=== PATIENT | male | born 1935 | race Caucasian/White ===

== ENCOUNTER 2019-01-08 19:20 | Inpatient (IN) ==
[2019-01-08 19:47] LABS: BASO# 0.01 X1000 (0.0-0.2); BASO% 0.1 % (0.0-0.8); EOS# 0.01 X1000 (0.0-0.7); EOS% 0.1 % (0.0-10.0); HEMATOCRIT 41.9 % (42.0-52.0); HEMOGLOBIN 14.2 g/dL (14.0-18.0); IMM GRAN# 0.02 X1000 (0.0-0.04); IMM GRAN% 0.2 % (0.0-0.5); LYMPH# 0.69 X1000 (1.2-3.4); LYMPH% 7.1 % (20.5-51.1); MCH 31.3 PG (27-31); MCHC 33.9 g/dL (33-37); MCV 92.3 FL (81-99); MONO# 1.16 X1000 (0.11-0.59); MPV 10.6 FL (7.4-10.4); NEUT# 7.79 X1000 (1.4-6.5); NEUT% 80.5 % (42.2-75.2); PLT 102 X1000 (130-400); RBC 4.54 XMIL (4.7-6.1); RDW 12.8 % (11.5-14.5); WBC 9.68 X1000 (4.8-10.8)
[2019-01-08 19:57] LABS: INR 1.03
--- NOTE | 2019-01-08 19:58 | PROVIDER DOCUMENTATION ---
This chart was entered by Sid Zabala Scribe, acting as scribe for Tad Joy CRNP. HPI-General Adult - General Chief Complaint: Shoulder Pain Stated Complaint: RIGHT NECK & SHOULDER PAIN Time Seen by Provider: 01/08/19 19:10 Source: patient Allergies/Adverse Reactions: Patient Allergies Allergy/AdvReac Type Severity Reaction Status Date / Time No Known Allergies Allergy Verified 01/08/19 19:08 Home Medications: Home Medication List Medication Instructions Recorded Confirmed Last Taken Type Famotidine [Pepcid] 20 mg PO DAILY 09/15/13 04/14/18 01/20/16 History Levothyroxine [Synthroid] 100 microgm PO HS 09/15/13 04/14/18 01/21/16 History Losartan [Cozaar] 50 mg PO HS 09/15/13 04/14/18 01/21/16 History Psyllium Husk/Aspartame [Metamucil 3.4 gm PO DAILY 09/15/13 01/21/16 01/21/16 History Fiber Singles Packet] Tamsulosin [Flomax] 0.4 mg PO QHS PRN 09/15/13 04/14/18 01/20/16 History Clopidogrel Bisulfate [Plavix] 75 mg PO DAILY 02/25/15 04/14/18 02/25/15 History ROSUVAstatin [Crestor] 10 mg PO QHS 02/25/15 04/14/18 01/21/16 History Aspirin [Adult Low Dose Aspirin EC] 81 mg PO DAILY #1 tablet. 02/27/15 Unknown Rx Nitroglycerin 0.4 mg SL PRN PRN #20 tab.subl 02/27/15 04/14/18 Unknown Rx Escitalopram Oxalate [Lexapro] 10 mg PO HS 04/14/18 04/14/18 Unknown History Finasteride [Proscar] 5 mg PO HS 04/14/18 04/14/18 Unknown History Losartan [Cozaar] 25 mg PO DAILY 04/14/18 04/14/18 Unknown History Tramadol [Ultram] 50 mg PO Q8H PRN #20 tab 01/06/19 Unknown Rx - History of Present Illness -Gen Adult Nature of Presenting Problems: 83 y/o M presents to the ED via EMS c/o neck and right shoulder pain. Onset a few days ago. Patient was seen at [facility] x2 days ago, had a ct and was told he had arthritis. Patient denies shortness of breath even though on arrival he has a low O2. Patient denies chest pain, nausea, vomiting and all other symptoms. Location of Pain/Injury: reports: neck, upper extremity Pain Radiation: reports: no radiation Quality of Pain: reports: aching Severity: reports: mild Onset/Duration: reports: 2 days ago Timing: reports: still present Context/Activities at Onset: reports: none Modifying Factors: improves with: nothing Associated Symptoms: reports: denies symptoms Similar Symptoms Previously?: Yes Recently seen or treated by another doctor?: Yes Review of Systems - Adult - REVIEW OF SYSTEMS - ADULT Constitutional: denies: chills, fever Eyes: reports: no symptoms reported Ears, Nose, Mouth & Throat: reports: no symptoms reported Cardiovascular: denies: chest pain, palpitations Respiratory: denies: shortness of breath, wheezing Gastrointestinal: denies: diarrhea, nausea, vomiting Genitourinary: reports: no symptoms reported Musculoskeletal: reports: neck pain, other (shoulder pain) Integumentary: reports: no symptoms reported Neurological: denies: dizziness/vertigo, headache/migraines Psychiatric: reports: no symptoms reported Endocrine: reports: no symptoms reported Hematologic/Lymphatic: reports: no symptoms reported Allergic/Immunologic: reports: no symptoms reported All Other Systems: Reviewed and Negative Past History - Adult - PAST MEDICAL HISTORY-ADULT Review of Records: reports: Nursing Assessment Review, Medications Reviewed Major Childhood Illnesses: reports: denies history Cardiovascular: reports: cardiac disease, CAD, HTN Respiratory: reports: denies history Gastrointestinal: reports: denies history Obstetrical/Gynecological: reports: denies history Genitourinary: reports: other (1 kidney, hx of bladder cancer) Musculoskeletal: reports: denies history Neurological: reports: denies history Psychiatric: reports: denies history Endocrine/Immune: reports: denies history Other Conditions: reports: denies history - PRIOR SURGERIES/PROCEDURES Surgical/Procedure History: reports: CABG - IMMUNIZATION STATUS Childhood Immunizations: See Nurse Assessment Flu Vaccine: See Nurse Assessment - FAMILY HISTORY Family History: reviewed, not pertinent Physical Exam-General - PHYSICAL EXAM-ADULT Initial Vital Signs Reviewed: Yes - CONSTITUTIONAL General Appearance: alert, no apparent distress - NECK Neck: non-tender, full range of motion, supple, normal inspection - RESPIRATORY Respiratory: lungs clear, normal breath sounds, no respiratory distress, no accessory muscle use - CARDIOVASCULAR Cardiovascular: normal peripheral pulses, regular rate, rhythm - GASTROINTESTINAL (ABDOMEN) Abdominal Exam: normal bowel sounds, non tender, soft - MUSCULOSKELETAL Back Exam: normal inspection, no vertebral tenderness Extremity: normal range of motion, normal capillary refill - SKIN Integumentary: normal color, warm/dry - PSYCHIATRIC Psych/Mental Status: normal mood/affect, oriented x 3 Progress - PLAN OF CARE/RESULTS Progress/Plan/Lab Results: Vital Signs - 8 hr 01/08/19 19:03 Temperature 98.1 F Pulse Rate 72 Respiratory Rate 20 Blood Pressure 154/91 O2 Sat by Pulse Oximetry 93 L Orders Category Date Time Status Saline Loc NOW Care 01/08/19 19:11 Active CHEST-PORTABLE [RAD] Stat Exams 01/08/19 19:12 Ordered CBC WITH ELECTRONIC DIFF [HEME] Stat Lab 01/08/19 19:11 Uncollected CK PROFILE [SP CHEM] Stat Lab 01/08/19 19:11 Uncollected COMPREHENSIVE METABOLIC PANEL [CHEM] Stat Lab 01/08/19 19:11 Uncollected D-DIMER [COAG] Stat Lab 01/08/19 19:12 Uncollected PROTIME WITH INR [COAG] Stat Lab 01/08/19 19:12 Uncollected PTT [COAG] Stat Lab 01/08/19 19:12 Uncollected TROPONIN T Stat Lab 01/08/19 19:12 Uncollected EKG [EKG] Stat Ther 01/08/19 19:11 Ordered Laboratory Tests 01/08/19 01/08/19 01/08/19 19:34 19:34 19:34 WBC 9.68 RBC 4.54 L Hgb 14.2 Hct 41.9 L MCV 92.3 MCH 31.3 H MCHC 33.9 RDW Std Deviation 12.8 Plt Count 102 L MPV 10.6 H Immature Gran % (Auto) 0.2 Neut % (Auto) 80.5 H Lymph % (Auto) 7.1 L [place] % (Auto) 12.0 H Eos % (Auto) 0.1 Baso % (Auto) 0.1 Immature Gran # (Auto) 0.02 Neut # (Auto) 7.79 H Lymph # (Auto) 0.69 L [place] # (Auto) 1.16 H Eos # (Auto) 0.01 Baso # (Auto) 0.01 PT 14.0 INR 1.03 PTT (Actin FS) 32.0 D-Dimer, Quantitative 1.50 H Sodium 129 L Potassium 4.2 Chloride 95 L Carbon Dioxide 21 L Anion Gap 12 BUN 27 H Creatinine 1.8 H Estimated GFR/1.73 m2 36 BUN/Creatinine Ratio 15 Glucose 163 H Calculated Osmolality 268 Calcium 7.6 L Total Bilirubin 2.40 H AST 50 H ALT 53 H Alkaline Phosphatase 114 Creatine Kinase 60 Troponin T Total Protein 5.8 L Albumin 3.6 Globulin 2.0 Albumin/Globulin Ratio 2.0 01/08/19 19:34 WBC RBC Hgb Hct MCV MCH MCHC RDW Std Deviation Plt Count MPV Immature Gran % (Auto) Neut % (Auto) Lymph % (Auto) [place] % (Auto) Eos % (Auto) Baso % (Auto) Immature Gran # (Auto) Neut # (Auto) Lymph # (Auto) [place] # (Auto) Eos # (Auto) Baso # (Auto) PT INR PTT (Actin FS) D-Dimer, Quantitative Sodium Potassium Chloride Carbon Dioxide Anion Gap BUN Creatinine Estimated GFR/1.73 m2 BUN/Creatinine Ratio Glucose Calculated Osmolality Calcium Total Bilirubin AST ALT Alkaline Phosphatase Creatine Kinase Troponin T < 0.010 Total Protein Albumin Globulin Albumin/Globulin Ratio Discussed results and plan of care with patient. Patient agrees with plan and v erbalizes understanding. Result Diagrams: 01/08/19 19:34 01/08/19 19:34 - XRAY 1 XRAY Study: Chest [facility] - [address] [facility] [address], [place] [address] [facility] [address] [place] [address] Department of Imaging Patient: NASRIN LOUIS ROYADM Date: MR#: [id number] : 6ADM [id number] Age/Sex: 83/MRoom/Bed: Loc: P.ED Ordering Physician: Tad Joy Family Physician: None,PCP Reason for Procedure: SOB ___ Signed EXAM: CHEST-PORTABLE INDICATION: SOB TECHNIQUE: One view COMPARISON: 02/15/2018 FINDINGS: Inspiration is suboptimal. There is subsegmental atelectasis at both lung bases. There is a stable right paratracheal density. On a recent CT it appears to simply represent a lipoma at the base of the neck. No new consolidations are appreciated. There is stable cardiomegaly and median sternotomy wires. Central vasculature is unremarkable. There is no discrete pleural fluid collection or pneumothorax. IMPRESSION: Low lung volumes and subsegmental atelectasis as described. Stable chest, otherw ise. Electronically signed by Malachi eMndoza 01/08/2019 9:06 PM 01/08/192105 Interpreting Physician: Malachi Mendoza MD Dictated Date/Time: 01/08/192102 cc: Tad Joy; None,PCP) XRAY Interpretation: See note - CONSULTS/PCP/HOSPITALIST Notification #1 *Consult/PCP/Hospitalist*: Dr. Palacios Time Discussed: 21:06 Reason/Comments: Admission Consult Disposition: Will see in ED, Admit Departure - Departure Date of Disposition Decision: 01/08/19 Time of Disposition Decision: 21:06 DIAGNOSIS: Elevated d-dimer, Hypoxia, Hyponatremia, Hyperglycemia, Acquired hyperbilirubinemia Chronic renal insufficiency Qualifiers: Chronic kidney disease stage: unspecified stage Qualified Code(s): N18.9 - Chronic kidney disease, unspecified Disposition: ADMITTED INPATIENT 09 Certified Medical Emergency: Emergent Condition: Stable - Critical Care Note This patient required my direct & personal management of CC.: Yes Total Time (mins): 40 Critical Care Statement: This patient required my direct personal management to treat or rule out processes, the absence of which, could potentiallly result in sudden, clinically significant life or limb threatening deterioration. Attestation - Physician/ NATANAEL Attestation Patient care was provided by Advanced Practice Provider:: Yes Advanced Practice Provider:: Tad Joy Advanced Practice Provider documentation review:: The Mid-level provider documentation, treatment plan and medical decision making was reviewed by the physician who agrees with all treatment and medical decision making by the MLP. The physician spent face to face time with patient:: No Advanced Practice Provider documentation review:: Supervising physician onsite and consulted in the evaluation and care of this patient. The physician did not have a face to face encounter with the patient. This chart was documented by the indicated scribe, (Sid Zabala Scribe) and accurately reflects the services I performed and decisions made by me, Tad Joy CRNP, as attested by the provider's signature.
[2019-01-08 20:04] LABS: ALBUMIN 3.6 g/dL (3.5-5.0); CALCIUM 7.6 mg/dL (8.8-10.2); CREATININE 1.8 mg/dL (0.7-1.2); POTASSIUM 4.2 mmol/L (3.5-5.1); TOTAL BILIRUBIN 2.4 mg/dL (0.20-1.00); TOTAL PROTEIN 5.8 g/dL (6.3-8.3)
[2019-01-08] MEDS ORDERED: ZOFRAN IV ONE (21:01)
[2019-01-08] MEDS ORDERED: MORPHINE IV ONE (21:02)
--- NOTE | 2019-01-08 21:08 | Diag Imaging Result Doc PS360 ---
EXAM: CHEST-PORTABLE INDICATION: SOB TECHNIQUE: One view COMPARISON: 02/15/2018 FINDINGS: Inspiration is suboptimal. There is subsegmental atelectasis at both lung bases. There is a stable right paratracheal density. On a recent CT it appears to simply represent a lipoma at the base of the neck. No new consolidations are appreciated. There is stable cardiomegaly and median sternotomy wires. Central vasculature is unremarkable. There is no discrete pleural fluid collection or pneumothorax. IMPRESSION: Low lung volumes and subsegmental atelectasis as described. Stable chest, otherwise. Electronically signed by Malachi Mendoza 01/08/2019 9:06 PM
[2019-01-08] MEDS ORDERED: FLOMAX PO PRN (21:18)
[2019-01-08] MEDS ORDERED: NITROGLYCERIN SL PRN (21:18)
[2019-01-08] MEDS ORDERED: MORPHINE IV PRN (21:21)
[2019-01-08] MEDS ORDERED: ULTRAM PO ONE (21:42)
[2019-01-08] MEDS: COZAAR PO SCH (22:27)
[2019-01-08] MEDS: ZOSYN 3.375 GM in NS 50 ML IV SCH (22:29)
[2019-01-08] MEDS: NS 1,000 ML IV SCH (23:24)
[2019-01-09] MEDS: ZOSYN 3.375 GM in NS 50 ML IV SCH ×3 (02:48→16:32)
[2019-01-09] MEDS: ZOFRAN IV PRN (02:48)
[2019-01-09 06:40] LABS: BASO# 0.01 X1000 (0.0-0.2); BASO% 0.1 % (0.0-0.8); EOS# 0.05 X1000 (0.0-0.7); EOS% 0.5 % (0.0-10.0); HEMOGLOBIN 14.1 g/dL (14.0-18.0); IMM GRAN# 0.03 X1000 (0.0-0.04); IMM GRAN% 0.3 % (0.0-0.5); LYMPH# 1.01 X1000 (1.2-3.4); MCH 31.5 PG (27-31); MCHC 33.6 g/dL (33-37); MONO# 1.28 X1000 (0.11-0.59); MPV 10.8 FL (7.4-10.4); NEUT# 6.78 X1000 (1.4-6.5); NEUT% 74.1 % (42.2-75.2); PLT 100 X1000 (130-400); RBC 4.47 XMIL (4.7-6.1); RDW 12.7 % (11.5-14.5); WBC 9.16 X1000 (4.8-10.8)
[2019-01-09 07:12] LABS: ALBUMIN 3.1 g/dL (3.5-5.0); CALCIUM 7.8 mg/dL (8.8-10.2); CREATININE 1.6 mg/dL (0.7-1.2); POTASSIUM 4.7 mmol/L (3.5-5.1); TOTAL BILIRUBIN 3.1 mg/dL (0.20-1.00); TOTAL PROTEIN 6.2 g/dL (6.3-8.3)
[2019-01-09] MEDS ORDERED: ROBAXIN PO PRN (10:00)
[2019-01-09] MEDS: METAMUCIL POWDER PACKET PO SCH (10:00)
[2019-01-09] MEDS ORDERED: LACTULOSE PO ONE (10:03)
--- NOTE | 2019-01-09 12:39 | Diag Imaging Result Doc PS360 ---
EXAM: CT NECK W/O CONTRAST INDICATION: right neck swelling; eval TECHNIQUE: This exam was performed using automated exposure control, adjustment of mA or kV according to patient size, and/or use of iterative reconstruction technique. COMPARISON: CT of the cervical spine dated 01/06/2019 FINDINGS: Please note that soft tissue neck CTs are particularly limited with no IV contrast. The salivary glands are unremarkable. There is very little thyroid tissue identified, especially on the right. There may have been a prior partial resection. It is stable. There is thickening and subtle heterogeneity involving the lower sternocleidomastoid muscle on the right and there is inflammatory stranding around the muscle as well as involving the subcutaneous soft tissues of the upper chest wall on the right. This was not present on the previous study. It may be infectious. It would be difficult to identify a small abscess with no IV contrast. No significant lymphadenopathy is appreciated. The extranodal lymphoid tissue is unremarkable. The aerodigestive tract is unremarkable. No discrete mass is identified given the limitations of an unenhanced study. IMPRESSION: 1.Limited study with no IV contrast. 2.Thickening and heterogeneity involving the lower sternocleidomastoid muscle with surrounding soft tissue inflammatory changes on the right. Consider an infectious process. Electronically signed by Malachi Mendoza 01/09/2019 12:37 PM
[2019-01-09] MEDS: ASPIRIN EC PO SCH (13:01)
[2019-01-09] MEDS: PLAVIX PO SCH (13:02)
[2019-01-09] MEDS: PROTONIX PO SCH (13:02)
--- NOTE | 2019-01-09 13:37 | Diag Imaging Result Doc PS360 ---
EXAM: US GB < RUQ (LIMITED) INDICATION: Right Shoulder Pain; Transaminasemia COMPARISON: None. FINDINGS: There are several bulky shadowing stones in the gallbladder lumen. No gallbladder wall thickening or pericholecystic fluid is identified. The common bile duct is normal in diameter. Sonographic Givens's sign was reported to be negative. The liver is grossly unremarkable. Portal venous flow is hepatopetal. The visualized portion of the pancreas is unremarkable. There is a small distal abdominal aortic aneurysm measuring up to 3.2 cm in diameter. The remainder of the visualized aorta and IVC are unremarkable. There has been a previous right nephrectomy. IMPRESSION: 1.Cholelithiasis. 2.Small distal abdominal aortic aneurysm. Electronically signed by Malachi Mendoza 01/09/2019 1:35 PM
--- NOTE | 2019-01-09 13:53 | HISTORY AND PHYSICAL ---
Addendum Report I saw the patient face to face and fully agree with the assessment and plan of nurse practitioner, Rylie Loo. The patient is an 83-year-old gentleman who presented to the emergency room with pain on right side of his neck and right shoulder area. He does have some elevated transaminases, because of which a gallbladder ultrasound has been ordered and is pending at the time of this dictation. There was also concern about pulmonary thromboembolism since his D-dimer was elevated at 1.5, and therefore, a lung V/Q scan has been ordered along with venous Doppler of lower extremities. They both are pending at this time. The patient had a CT scan of the neck area earlier today since he was having pain and tenderness in that area that showed thickening and heterogenicity involving the lower sternocleidomastoid muscle with surrounding soft tissue inflammatory changes on the right and was suspected of having an infectious process. The patient has been getting intravenous Zosyn which will be continued at this time. Further recommendations will be given as per outcome of further testing. cc: Varsha Palacios MD
--- NOTE | 2019-01-09 13:53 | HISTORY AND PHYSICAL ---
PRIMARY CARE PROVIDER: Carter Coley. CHIEF COMPLAINT: Right neck pain. HISTORY OF PRESENT ILLNESS: Mr. Migue Arriola is a 83-year-old male with a medical history of coronary artery disease, hypertension, 1 kidney, CKD stage 3, hyperlipidemia, hypothyroidism, bladder cancer in the past and even chronic neck pain presents with complaints of sudden onset of right-sided neck pain so his most recent history is he was riding a horse on I believe it was Friday night and then Friday had cystoscope performed by Dr. Boyd and then by Friday night is when the right neck pain started. He never noticed the swelling or the pain being in the swollen area but palpation revealed about a half size of a egg-sized mass in the right neck with palpation. He claims the pain is better but had gotten some medication around 3 a.m. and the pain is better. He does have an elevated D-dimer so will have to rule out any type of clots there or in the lungs or the legs. He denies any shortness of breath but emergency department reported him as being mildly hypoxic and requiring oxygen although he is on room air tolerating that fine right now. Also noted coincidentally he was found that he has an elevation in his liver enzymes and will get an ultrasound of the liver and gallbladder. PAST MEDICAL HISTORY: 1. CKD stage 3. 2. Coronary artery disease with a history of heart attack and coronary artery bypass grafting. 3. 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 4. Hyperlipidemia. 5. Hypothyroidism. 6. CKD stage 3. 7. BPH. 8. History of bladder cancer 2016 in which he describes as a solution that was placed in his bladder to get rid of the cancer. 9. History of chronic neck pain. SURGICAL HISTORY: 1. Coronary artery bypass grafting. 2. Right nephrectomy. 3. Partial thyroidectomy. 4. Appendectomy. SOCIAL HISTORY: Quit smoking at the age of 60 so that is 23 years ago but prior to that he is a 1 pack per day smoker for about 8 years, denies chewing tobacco, alcohol or illicit drug use. He lives at home with his of 64 years and I guess enjoys riding horses. FAMILY HISTORY: Mother had breast cancer, father from a heart attack at 70. ALLERGIES: No known drug allergies. HOME MEDICATIONS: Have not been reconciled, the ones that appear to be reconciled is 1. Lexapro 10 mg p.o. nightly. 2. Plavix 75 mg p.o. daily. 3. Finasteride 5 mg p.o. nightly. 4. Protonix 40 mg p.o. daily. 5. Synthroid 100 mcg p.o. daily. REVIEW OF SYSTEMS: Fourteen point review of systems are complete and all are negative except those mentioned above HPI. PHYSICAL EXAM: VITAL SIGNS: Temperature 98.1 degrees, heart rate 63, respiratory 16, blood pressure 122/68, O2 saturations 95% on 2 L nasal cannula. GENERAL: 83-year-old male he is in no acute distress. He is able to answer questions appropriately. HEENT: Atraumatic, normocephalic. Pupils equal, round, reactive to light. Extraocular movements intact. Mucous membranes are dry. NECK: Trachea midline. There is a right-sided palpable tender mass about the size of half of an egg long ways . CARDIOVASCULAR: S1, S2. Regular rate and rhythm. No rubs, gallops, murmurs. No lower extremity edema. +2 dorsalis and radial pulses, negative JVD or carotid bruits. PULMONARY: Clear to auscultate bilateral breath sounds. No accessory muscle use or work of breathing noted. GI: Soft, nontender, nondistended. Positive bowel sounds x4. EXTREMITIES: Moves all extremities equally, full range of motion. NEUROLOGIC: A and O x3, follows commands. Sensory is intact. SKIN: Warm, dry, intact. LABORATORY DATA: White blood cells 9000, hemoglobin 14, hematocrit 42, platelet count 100,000, D- dimer is 1.50. Sodium 131, potassium 4.7, BUN 24, creatinine is 1.6, glucose 127, calcium 7.8, bilirubin 3.10, AST 44, ALT 53, CK 60, troponin less than 0.01, albumin 3.1, TSH 1.08. IMAGING: Chest x-ray, low lung volumes and subsegmental atelectasis. ASSESSMENT AND PLAN: 1. Right neck pain with right palpable mass that is very tender, imaging ordered pending the results will determine type of treatment. 2. Elevated D-dimer. Will get a V/Q scan as he does have chronic kidney disease, also get lower extremity ultrasound and again will have to follow up on the CAT scan of the neck rule out any kind of clots there. 3. He is complaining of constipation so will give a 1 time dose of lactulose and start him on Talia-Colace. 4. Hyperbilirubinemia with transaminitis. He has got a abdominal ultrasound of the gallbladder ordered and the liver, hopefully will improve with IV fluid hydration and he denies any abdominal pain. 5. Chronic kidney disease stage 3. Looking at old labs he is 1.6 today and he is at baseline. He ranges anywhere from 1.5 to as high as 1.9, he also has just 1 solitary kidney. 6. History of coronary artery disease, coronary artery bypass graft, he is on Plavix, will continue that. 7. Hypertension blood pressure stable. Continue on Cozaar. 8. Hypothyroidism, continue Synthroid. 9. Benign prostatic hypertrophy, continue finasteride. 10. Chronic neck pain and acute neck pain. He has got p.r.n. morphine and Robaxin. 11. Gastroesophageal reflux disease, continue Protonix. 12. Depression, continue Lexapro. 13. Deep venous thrombosis prophylaxis SCDs. Dictated by ANNA Ramirez for Varsha Palacios MD cc: MD Varsha Parks MD
--- NOTE | 2019-01-09 14:29 | Diag Imaging Result Doc PS360 ---
EXAM: LUNG SCAN / VQ INDICATION: elevated ddimer; low o2 TECHNIQUE: 38.1 mCi of aerosolized technetium 99 DTPA was administered for the ventilation portion of the scan. 5.9 mCi of IV technetium 99 MAA was administered for the perfusion portion of the scan. COMPARISON: No prior V/Q scan is available for comparison. FINDINGS: No matched or unmatched perfusion defects are identified. The ventilation portion of the scan is unremarkable as well. IMPRESSION: Negative VQ scan. Electronically signed by Malachi Mendoza 01/09/2019 2:27 PM
[2019-01-09] MEDS ORDERED: ULTRAM PO PRN (16:55)
--- NOTE | 2019-01-09 18:23 | Extremity Venous Study ---
EXAM: Carotid Ultrasound INDICATION: right neck swollen; elevated ddimer TECHNIQUE: COMPARISON: None. FINDINGS: Right: There is intimal thickening with atherosclerotic plaque with at least some calcification at the distal CCA and at the carotid bulb. The peak systolic velocity measures 91, 79, 69, 90, 66, 50, and 195 cm/s at the right subclavian artery, CCA, bifurcation, proximal ICA, mid ICA, distal ICA, and ECA, respectively. There is antegrade flow in the vertebral artery. The carotid ratio is 1.13. This suggests stenosis between zero and 39%. There is an echogenic mass in the soft tissues superficial to the carotid arteries on the right. It may represent an intramuscular lipoma. Consider evaluation with dedicated soft tissue neck ultrasound or contrast-enhanced CT. Left: There is patchy atherosclerotic plaque at the distal CCA and at the carotid bulb. The peak systolic velocity measures 123, 112, 90, 94, 118, 102, and 98 cm/s at the left subclavian artery, CCA, bifurcation, proximal ICA, mid ICA, distal ICA, and ECA, respectively. There is antegrade flow in the vertebral artery. The carotid ratio is 1.05. This suggests stenosis between 40 and 59%. IMPRESSION: 1.Bilateral atherosclerotic disease at the distal CCAs and carotid bulbs as described with stenosis between 40% 59% based on hemodynamics on the left. 2.Echogenic mass in the soft tissues superficial to the carotid arteries on the right. Please see above discussion. Electronically signed by Malachi Mendoza 01/09/2019 6:21 PM
--- NOTE | 2019-01-09 18:24 | Extremity Venous Study ---
EXAM: Venous U/S Bilateral Legs INDICATION: elevated ddimer TECHNIQUE: COMPARISON: None. FINDINGS: There is no discrete filling defects and there is normal Doppler flow, compressibility, and augmentation involving the deep venous systems of the right and left lower extremities. The great saphenous veins also appear to be patent bilaterally. IMPRESSION: No evidence of DVT. Electronically signed by Malachi Mendoza 01/09/2019 6:22 PM
[2019-01-09] MEDS ORDERED: LEXAPRO PO SCH (21:00)
[2019-01-09] MEDS: PROSCAR PO SCH (21:44)
[2019-01-09] MEDS: COZAAR PO SCH (21:44)
[2019-01-09] MEDS: PERICOLACE PO SCH (21:44)
[2019-01-09] MEDS: CRESTOR PO SCH (21:44)
[2019-01-09] MEDS: SYNTHROID PO SCH (21:44)
[2019-01-09] MEDS ORDERED: SODIUM BICARBONATE 8.4% 100 MEQ in STERILE WATER INJ. 1,000 ML IV SCH (23:00)
[2019-01-10] MEDS: ZOSYN 3.375 GM in NS 50 ML IV SCH ×3 (04:54→18:20)
[2019-01-10] MEDS: NS 1,000 ML IV SCH ×4 (04:54→20:19)
[2019-01-10] MEDS: ZYVOX 600 MG/D5W 600 MG/300 ML IVPB IV SCH ×2 (04:55→20:19)
[2019-01-10] MEDS: PROTONIX PO SCH (06:38)
[2019-01-10 06:47] LABS: BASO# 0.01 X1000 (0.0-0.2); BASO% 0.1 % (0.0-0.8); EOS# 0.09 X1000 (0.0-0.7); EOS% 1.3 % (0.0-10.0); HEMATOCRIT 39.9 % (42.0-52.0); HEMOGLOBIN 13.2 g/dL (14.0-18.0); IMM GRAN# 0.02 X1000 (0.0-0.04); IMM GRAN% 0.3 % (0.0-0.5); LYMPH# 0.94 X1000 (1.2-3.4); LYMPH% 13.5 % (20.5-51.1); MCH 30.6 PG (27-31); MCHC 33.1 g/dL (33-37); MCV 92.6 FL (81-99); MONO% 15.8 % (1.7-9.3); MPV 10.7 FL (7.4-10.4); NEUT# 4.81 X1000 (1.4-6.5); PLT 126 X1000 (130-400); RBC 4.31 XMIL (4.7-6.1); RDW 12.8 % (11.5-14.5); WBC 6.97 X1000 (4.8-10.8)
[2019-01-10 07:03] LABS: ALBUMIN 3.1 g/dL (3.5-5.0); CALCIUM 8.4 mg/dL (8.8-10.2); CREATININE 1.6 mg/dL (0.7-1.2); MAGNESIUM 1.8 mg/dL (1.5-2.7); POTASSIUM 4.1 mmol/L (3.5-5.1); TOTAL BILIRUBIN 2.3 mg/dL (0.20-1.00); TOTAL PROTEIN 5.9 g/dL (6.3-8.3)
[2019-01-10] MEDS: METAMUCIL POWDER PACKET PO SCH (10:48)
[2019-01-10] MEDS: PLAVIX PO SCH (10:48)
[2019-01-10] MEDS: PERICOLACE PO SCH ×2 (10:48→21:19)
[2019-01-10] MEDS: ASPIRIN EC PO SCH (10:48)
--- NOTE | 2019-01-10 12:59 | Diag Imaging Result Doc PS360 ---
EXAM: US SOFT TISSUE HEAD/NECK INDICATION: right neck mass TECHNIQUE: COMPARISON: None. FINDINGS: There has been prior resection of the right thyroid lobe. The remaining visualized portion of the thyroid is unremarkable. There is a complex mixed echotexture mass that is overall somewhat echogenic as compared to the surrounding musculature corresponding to the painful palpable abnormality at the right side of the neck. It appears to be in the sternocleidomastoid muscle which was thickened on a recent unenhanced neck CT. There is very little associated Doppler flow. This probably represents a soft tissue hematoma but an abscess cannot completely be excluded. It measures 5.4 x 5.0 x 2.1 cm. No other cystic or solid lesions are appreciated. IMPRESSION: Complex heterogeneous mass in the soft tissues of the neck on the right corresponding to the palpable abnormality. This probably represents a soft tissue hematoma but in the right clinical scenario, an abscess is possible. Follow-up is recommended to assure resolution. Electronically signed by Malachi Mendoza 01/10/2019 12:57 PM
[2019-01-10] MEDS ORDERED: GEODON IM PRN (16:30)
[2019-01-10] MEDS ORDERED: STERILE WATER INJ. INJ PRN (16:30)
--- NOTE | 2019-01-10 17:57 | PROGRESS NOTE ---
DATE: 01/10/2019 SUBJECTIVE: Patient reports feeling some fullness in the right neck and according to him and also who is at bedside, he was experiencing some visual hallucinations after he was receiving morphine as a pain medication. He reports some pain when he lays down at the back of his skull. Denies any other complaint. OBJECTIVE: Vital Signs: Temperature 98.2 degrees, heart rate 60, respiratory rate 18, blood pressure 143/65, O2 saturation 95% on room air. General examination: This is an 83-year-old male, lying in bed, in no acute distress. HEENT: Head is normocephalic and atraumatic. Neck: There is a right-sided palpable, tender mass of 6 cm approximately. Cardiovascular: S1, S2 heard. No murmurs, gallops, or rubs. Regular rate and rhythm. Respiratory: Clear bilaterally to auscultation. No work of breathing or using accessory muscles. Abdomen: Soft. Nontender to palpation. Bowel sounds present. No organomegaly. Extremities: No clubbing, cyanosis, or edema. Peripheral pulses present in both legs. Neurological: Patient is alert and oriented x3. Moves 4 extremities. LABORATORY DATA: Reviewed. ASSESSMENT AND PLAN: 1. Right neck pain with right palpable mass. We have done a CT of the neck which basically showed thickening and involving the lower sternocleidomastoid muscle. Also head and neck ultrasound showed complex heterogeneous mass that measures 5.4 x 5.0 x 2.1. At this point, we are not sure if that is a hematoma or an abscess. In any case, we decided to cover him with antibiotics. It is important to remark that white cell count is normal. He has not experienced any fever. The patient requests to be transferred to [facility] to be taken care of by his primary care physician, Dr. Carter Coley. We are going to do that. To see if he is a candidate for any procedure, we are going to consult General Surgery and we will go from there. 2. Elevated D-dimer. We have ruled out blood clots in the legs by doing the Doppler of both lower extremities. V/Q scan is also low probability as well. 3. Constipation. We will continue with Talia-Colace. 4. Transaminitis. Abdominal ultrasound showed cholelithiasis and small distal abdominal aortic aneurysm. 5. Hypertension. Blood pressure is under control. We will continue with same management. 6. Benign prostatic hypertrophy. We will continue with finasteride. 7. Disposition. At this point, the patient is going to be transferred to [facility] and now he is going to be under the care of his primary care physician, Dr. Carter Coley, or whoever is covering him during this long weekend. cc: Abel Milton MD MTDD
--- NOTE | 2019-01-10 20:33 | GENERAL SURGERY CONSULTATION ---
DATE: 01/10/2019 REQUESTING PHYSICIAN: Dr. Pena. REASON FOR CONSULTATION: Right sternocleidomastoid mass. HISTORY OF PRESENT ILLNESS: An 83-year-old male with medical history of coronary artery disease, hypertension, chronic kidney disease, hyperlipidemia, hypothyroidism, bladder cancer presenting with sudden onset right-sided neck pain. He has had several days of right-sided pain. He noted swelling in the area and it has been increasing in size. He denies any kind of trauma to the area. He is on Plavix. He had significant tenderness in the area, he has had imaging that shows a potential for hematoma in the area but there was a density in the sternocleidomastoid. PAST MEDICAL HISTORY: Includes chronic kidney disease, coronary artery disease, solitary kidney, hyperlipidemia, hypothyroidism, BPH, history of bladder cancer, chronic neck pain. PAST SURGICAL HISTORY: Includes coronary artery bypass, right nephrectomy, partial thyroidectomy, appendectomy. SOCIAL HISTORY: Former smoker. Denies alcohol or illicit drugs. FAMILY HISTORY: Positive for breast cancer, coronary artery disease. ALLERGIES: None. HOME MEDICATIONS: Of note he is on Plavix. REVIEW OF SYSTEMS: A full 14 systems reviewed and negative except as specified in HPI. PHYSICAL EXAM: Vital Signs: Patient is currently afebrile. His vital signs stable. General: No acute distress. Alert, interactive male looks stated age. HEENT: Normocephalic, atraumatic. Pupils equal, round, reactive to light. Mucous membranes moist. Oropharynx benign. Neck: Right-sided palpable tender mass with some associated erythema that seems to be extending more anteriorly and inferiorly. Cardiovascular: Regular rate and rhythm. Lungs: Grossly clear. Abdomen: Soft, nontender, nondistended. Extremities: Moves all extremities. Neurologic: Grossly intact. Skin: Erythema as noted above. Vascular: All extremities perfused. LABORATORY: White blood cell count is normal, hematocrit is normal, platelet count is slightly low. There is no left shift. Sodium is 129, creatinine is 1.6, bilirubin is 2.3, AST, ALT and alkaline phosphatase are all slightly elevated. IMAGING: Ultrasound of the neck, CT scan in the neck, carotid ultrasound reviewed, lower extremity ultrasound reviewed. Ultrasound of the gallbladder reviewed. ASSESSMENT AND PLAN: An 83-year-old gentleman right-sided neck mass. 1. Right-sided neck mass. At this time could represent a hematoma. I have discussed this case with Dr. Mcbride. He will likely come in and see the patient in the morning since he has established with Dr. Mcbride, may need to consider something like an FNA of the area to see if there is fluid but otherwise agree with antibiotics as written by the hospitalist. 2. Cholelithiasis and elevated liver function tests. At this time could have some degree of obstruction but he does not really have much tenderness in his abdomen. Will continue to monitor his liver function tests. He does have a hepatitis panel pending. 3. Multiple medical comorbidities currently being managed by the hospitalist. Will defer to them. cc: Horacio Vanegas MD
[2019-01-10] MEDS: CRESTOR PO SCH (21:19)
[2019-01-10] MEDS: PROSCAR PO SCH (21:19)
[2019-01-10] MEDS: COZAAR PO SCH (21:20)
[2019-01-10] MEDS: SYNTHROID PO SCH (21:20)
[2019-01-11] MEDS: ZOSYN 3.375 GM in NS 50 ML IV SCH ×4 (00:47→21:47)
[2019-01-11] MEDS: ZYVOX 600 MG/D5W 600 MG/300 ML IVPB IV SCH ×2 (04:31→16:44)
[2019-01-11 06:22] LABS: BASO# 0.01 X1000 (0.0-0.2); BASO% 0.1 % (0.0-0.8); EOS# 0.05 X1000 (0.0-0.7); EOS% 0.7 % (0.0-10.0); HEMATOCRIT 40.8 % (42.0-52.0); HEMOGLOBIN 14.1 g/dL (14.0-18.0); IMM GRAN# 0.04 X1000 (0.0-0.04); IMM GRAN% 0.6 % (0.0-0.5); LYMPH# 0.97 X1000 (1.2-3.4); MCH 31.6 PG (27-31); MCHC 34.6 g/dL (33-37); MCV 91.5 FL (81-99); MONO# 0.98 X1000 (0.11-0.59); MONO% 14.1 % (1.7-9.3); MPV 10.9 FL (7.4-10.4); NEUT# 4.88 X1000 (1.4-6.5); NEUT% 70.5 % (42.2-75.2); PLT 140 X1000 (130-400); RBC 4.46 XMIL (4.7-6.1); RDW 12.4 % (11.5-14.5); WBC 6.93 X1000 (4.8-10.8)
[2019-01-11 06:35] LABS: ALB/GLOB RATIO 1.1; ALBUMIN 3.1 g/dL (3.5-5.0); CALCIUM 8.3 mg/dL (8.8-10.2); CREATININE 1.5 mg/dL (0.7-1.2); MAGNESIUM 1.9 mg/dL (1.5-2.7); POTASSIUM 4.2 mmol/L (3.5-5.1); TOTAL BILIRUBIN 1.8 mg/dL (0.20-1.00); TOTAL PROTEIN 5.8 g/dL (6.3-8.3)
[2019-01-11] MEDS: PROTONIX PO SCH (07:40)
[2019-01-11] MEDS: PERICOLACE PO SCH ×2 (08:02→21:48)
[2019-01-11] MEDS: METAMUCIL POWDER PACKET PO SCH (08:02)
[2019-01-11] MEDS: PLAVIX PO SCH (08:02)
[2019-01-11] MEDS: ASPIRIN EC PO SCH (08:02)
--- NOTE | 2019-01-11 09:30 | PROGRESS NOTE ---
DATE: 01/11/2019 HISTORY OF PRESENT ILLNESS: This is an 83-year-old who was admitted. He is a patient of Dr. Carter Coley. Came in with right neck pain. He reports that really when he lies down on the bed, it is worse pain. He cannot lie on either side. He hurts particularly in the right side of his neck. He has a pretty impressive lordosis and kyphosis on his cervical neck. He says he has trouble even moving his right arm and shoulder and the back of his head will give him quite a bit of pain if he lies down on a pillow. PAST MEDICAL HISTORY: 1. Chronic kidney disease, stage 3. 2. Coronary artery disease with a history of heart attack, coronary artery bypass graft in the past. 3. Solitary kidney, status post right nephrectomy for benign lesion. 4. Hyperlipidemia. 5. Hypothyroidism. 6. Benign prostatic hypertrophy. 7. History of bladder cancer in 2016 and apparently took some intravesical chemotherapy. 8. History of chronic neck pain. SURGICAL HISTORY: 1. Coronary artery bypass grafting. 2. Right nephrectomy. 3. Partial thyroidectomy. 4. Appendectomy. ASSESSMENT AND PLAN: 1. Admitted with right pain. He has right palpable mass right over the mid sternocleidomastoid muscle. It needs to be explored. He has pretty profound lordosis on his cervical spine, and I suspect he is getting radiculopathy in both arms, but the right arm more than the left. Very uncomfortable. Cannot lie in the bed. Cannot lie on either side. Had to sleep in the recliner. 2. Had an elevated D-dimer. We will plan on getting a V/Q scan, but really does not give a strong history to suggest pulmonary thromboemboli. 3. Constipation. Continue lactulose and Talia-Colace. 4. Hyperbilirubinemia and transaminitis. Plan to get an ultrasound of the gallbladder and look at the liver as well. 5. Chronic kidney disease, stage 3. His creatinine appears pretty stable. He has a creatinine of 1.6. 6. History of coronary artery disease, status post artery bypass graft. He is on Plavix. 7. Hypertension. Blood pressure is under good control. 8. Hypothyroidism. Appears to be euthyroid on Synthroid. 9. Benign prostatic hypertrophy. He is on finasteride. Continue that. 10. Chronic neck pain, acute neck pain, and I suspect he has probably significant spondylolisthesis and radiculopathy in that cervical spine. Get Orthopedics to look as well. 11. Gastroesophageal reflux. On Protonix. 12. Depression. 13. He is on sequential compression devices for deep venous thrombosis prophylaxis. REVIEW OF ORDERS: He is on Crestor 10 mg a day. Aspirin 81 mg a day. Plavix 75 mg a day. Proscar 5 mg at bedtime. Synthroid 100 mcg at bedtime. Cozaar 50 mg at bedtime. Robaxin 500 mg q.6 h. Normal saline at 100 mL an hour. Protonix 40 mg daily. Metamucil 1 scoop daily. Talia- Colace 2 of them b.i.d. Tamsulosin 0.4 mg at bedtime p.r.n. Tramadol 50 mg at bedtime. He is on Zosyn 3.375 g IV q.6 h. Linezolid 600 mg q.12 h. DIAGNOSTIC STUDIES: Looking back at his scans, he had a neck CT done 01/09/2019, limited study. Thickening and heterogeneity involving the lower sternocleidomastoid muscle and surrounding soft tissue. Could consider infectious process. Carotid Doppler done. Bilateral atherosclerotic disease in the distal common carotid artery, carotid bulbs between 40% and 59%. Echogenic mass in the soft tissue superficial to the carotid arteries. His V/Q scan was a negative V/Q scan. Extremity venous study: No evidence of DVT. Chest x-ray: Low lung volumes, subsequent subsegmental atelectasis, otherwise unremarkable. Head and neck ultrasound: Complex heterogeneous mass in the soft tissues of the neck on the right, corresponding to the palpable abnormality. Probably represents soft tissue hematoma, but in the right clinical scenario, abscess is possible, so we are trying to get follow up ultrasound. General Surgery is seeing; Dr. Vanegas has evaluated the right-sided neck mass. Could represent hematoma. We may need to do a fine-needle biopsy. Continue present antibiotics. We will get Orthopedics to look as well because of his right arm weakness and radicular type pain. cc: MD Carter Jung MD
[2019-01-11] MEDS ORDERED: MILK OF MAGNESIA PO ONE ×2 (10:28→18:16)
[2019-01-11] MEDS: NS 1,000 ML IV SCH ×2 (10:42→14:06)
--- NOTE | 2019-01-11 11:03 | GENERAL SURGERY PROGRESS NOTE ---
DATE: 01/11/2019 Migue was admitted a couple days ago with right anterior neck pain that appeared suddenly. The area of the right lower anterior neck is tender and swollen. There is some anterior erythema as well. He additionally complains of some posterior neck pain and right shoulder pain, which may be a different process. His white count remains normal. Hemoglobin is stable. Renal function may be a little bit better with his creatinine down to 1.5. He has abnormal LFTs. ASSESSMENT: I am concerned that this is an infectious process, and I think I D is indicated. Less likely is a hematoma. PLAN: I will plan I D in the operating room tomorrow. He has not been n.p.o. today. I agree with continued antibiotic therapy. I have discussed this with him. He agrees. I will speak with his when I reach her. cc: MD Carter Foley MD MTDD
--- NOTE | 2019-01-11 12:51 | ORTHOPAEDICS CONSULTATION ---
DATE: 01/11/2019 CHIEF COMPLAINT: Neck and shoulder pain. HISTORY OF PRESENT ILLNESS: This is an 83-year-old male, who complains of neck and shoulder pain. He has a sternocleidomastoid mass that Dr. Mcbride feels is an infection and he is planning on doing an irrigation and debridement of that tomorrow in the OR. For past medical history, past surgical history, medicines, and allergies, see admission history and physical. Review of systems is negative except as above. Physical exam reveals severe thoracic kyphosis with a compensatory cervical lordosis. He has a radicular-type pain in his arm and shoulder, but his arms are grossly neurovascularly intact. He does have some weakness in his right shoulder as well, which likely represents some bursitis in his shoulder. His CT shows the severe kyphosis and lordosis as well as the abscess on the sternocleidomastoid, but no acute abnormality. IMPRESSION: Abscess, sternocleidomastoid on the right with severe kyphosis and lordosis likely causing radicular symptoms into his shoulder, and probably he has right shoulder bursitis as well. PLAN: I have discussed with him at length. He is actually feeling better today and is not having to take any pain medicine. Normally we would probably treat this with steroids. Can inject his right shoulder as well. However, given the fact that he has an ongoing abscess, I think it is best that we hold off of the steroids for down and just treat his pain symptomatically. I can follow up with him in the office and give him a shot in the shoulder if it continues to be painful. We can also consider a steroid Dosepak once his infection is cleared. cc: MD Carter Butler MD
[2019-01-11] MEDS: CRESTOR PO SCH (21:48)
[2019-01-11] MEDS: COZAAR PO SCH (21:48)
[2019-01-11] MEDS: SYNTHROID PO SCH (21:48)
[2019-01-11] MEDS: PROSCAR PO SCH (21:48)
[2019-01-11] MEDS: ZOFRAN IV PRN (23:52)
[2019-01-12] MEDS: PROTONIX PO SCH ×3 (00:04→20:46)
[2019-01-12] MEDS: ZOSYN 3.375 GM in NS 50 ML IV SCH ×2 (02:15→07:54)
[2019-01-12] MEDS: ZYVOX 600 MG/D5W 600 MG/300 ML IVPB IV SCH ×2 (05:26→16:08)
[2019-01-12] MEDS: NS 1,000 ML IV SCH (05:27)
[2019-01-12 05:53] LABS: BASO# 0.02 X1000 (0.0-0.2); BASO% 0.3 % (0.0-0.8); EOS# 0.08 X1000 (0.0-0.7); EOS% 1.1 % (0.0-10.0); IMM GRAN# 0.08 X1000 (0.0-0.04); IMM GRAN% 1.1 % (0.0-0.5); LYMPH# 0.92 X1000 (1.2-3.4); LYMPH% 13.2 % (20.5-51.1); MCH 31.8 PG (27-31); MCV 90.9 FL (81-99); MONO# 0.86 X1000 (0.11-0.59); MONO% 12.3 % (1.7-9.3); MPV 10.8 FL (7.4-10.4); NEUT# 5.02 X1000 (1.4-6.5); PLT 153 X1000 (130-400); RDW 12.4 % (11.5-14.5); WBC 6.98 X1000 (4.8-10.8)
[2019-01-12 06:55] LABS: CREATININE 1.4 mg/dL (0.7-1.2); POTASSIUM 4.3 mmol/L (3.5-5.1)
[2019-01-12 06:56] LABS: ALBUMIN 2.8 g/dL (3.5-5.0); CALCIUM 8.1 mg/dL (8.8-10.2); MAGNESIUM 1.9 mg/dL (1.5-2.7); TOTAL BILIRUBIN 1.65 mg/dL (0.20-1.00); TOTAL PROTEIN 5.5 g/dL (6.3-8.3)
[2019-01-12] MEDS ORDERED: NS 1,000 ML IV SCH (08:09)
[2019-01-12] MEDS: PERICOLACE PO SCH (08:23)
[2019-01-12] MEDS: METAMUCIL POWDER PACKET PO SCH (08:23)
[2019-01-12] MEDS: ASPIRIN EC PO SCH ×2 (08:23→20:46)
[2019-01-12] MEDS: LEVAQUIN 250 MG/D5W 250 MG/50 ML IVPB IV SCH (09:02)
[2019-01-12 10:09] LABS: HEPATITIS PROFILE ACUTE SEE COMMENTS
[2019-01-12] MEDS ORDERED: XYLOCAINE-MPF 2% ONE (10:27)
[2019-01-12] MEDS ORDERED: DIPRIVAN 1% ONE (10:28)
[2019-01-12] MEDS ORDERED: SENSORCAINE 0.25%/EPI 1:200,000 ONE (11:09)
[2019-01-12] MEDS ORDERED: DECADRON ONE (11:11)
[2019-01-12] MEDS ORDERED: ZOFRAN ONE (11:11)
[2019-01-12] MEDS ORDERED: FENTANYL ONE (11:20)
--- NOTE | 2019-01-12 14:07 | OPERATIVE NOTE ---
PROCEDURE DATE: 01/12/2019 NAME OF PROCEDURE: Incision and drainage of abscess right sternocleidomastoid muscle. SURGEON: Harpal Mcbride MD INTERFACE ANALYST: Dinorah Parker RN PREOPERATIVE DIAGNOSIS: Abscess right sternocleidomastoid muscle. POSTOPERATIVE DIAGNOSIS: Abscess right sternocleidomastoid muscle. INDICATIONS: An 83-year-old, who was admitted with a tender swollen mass right side of the neck. Based on imaging it appeared to be an abscess in his right sternocleidomastoid muscle of uncertain etiology. He did apparently grow gram-positive coccus in his blood stream. DESCRIPTION OF PROCEDURE: Satisfactory general anesthesia was achieved, an LMA was used. The right side of the neck was prepped and draped in a sterile fashion. We did image with ultrasound the sternocleidomastoid muscle and noticed an unusual area in the lower part of the muscle. We marked the skin along the course of the muscle, anesthetized the skin with 0.25 Marcaine with epinephrine, incised the skin, and carried our incision through the platysma. The lower muscle of felt indurated. I spread the muscle fibers and digitally entered the mid aspect of the muscle and encountered purulent drainage. We cultured it. We digitally explored the inside of the muscle, felt like that we had opened up the muscle to the extent that we needed to, we did not find any tracts going elsewhere. I did take some of the muscle fibers for biopsy purposes. We copiously irrigated out the abscess cavity. I chose to put a Danielito drain within the cavity and bringing it out inferiorly to the skin incision and secured to the skin with 2-0 nylon. We then approximated the platysma with interrupted 3-0 Polysorb. We closed the skin with a 4-0 Polysorb subcuticular stitch. A sterile island dressing was applied. He tolerated the procedure satisfactory, was sent to the recovery room in satisfactory condition. cc: MD Carter Foley MD
[2019-01-12] MEDS ORDERED: DESYREL PO PRN (19:08)
[2019-01-12] MEDS: PERIDEX MT SCH (20:46)
[2019-01-12] MEDS: PROSCAR PO SCH (20:46)
--- NOTE | 2019-01-13 00:10 | PROGRESS NOTE ---
DATE: 01/12/2019 SUBJECTIVE: The patient's chart was reviewed. In summary, patient was admitted on January 08 with intractable right neck and right upper extremity pain. Upon evaluation, he was found to have a solid mass. A CT scan was performed, which revealed thickening and heterogeneity involving the lower sternocleidomastoid muscle with surrounding soft tissue inflammation. Subsequent ultrasound suggest a complex heterogenous mass in the soft tissue of the neck on the right corresponding to the palpable abnormality. This morning, upon my arrival, patient was sitting upright. He stated he felt well. Incision and drainage of this area was scheduled by Dr. Mcbride. This afternoon, patient was in good spirits. He is postoperative. He tolerated it quite well. He denies significant symptoms, including fevers, chills, nausea, vomiting, shortness of breath, or chest discomfort. He notes his right upper extremity pain to be reasonably controlled. OBJECTIVE: Vital signs: T-max 98.8 degrees. Heart rate 62 to 72. Respirations 18 to 20. Blood pressure 129 to 161/74 to 101. General: No acute distress. HEENT: Normocephalic, atraumatic. Pupils equal, round, react to light. Extraocular muscles intact. Sclerae anicteric. [place] conjunctivae. Oral and nasopharynx clear without exudate. Neck: Supple. No lymphadenopathy. No thyromegaly. No bruits auscultated. Cardiovascular: Regular rate and rhythm. No significant murmurs, rubs, or gallops. Pulmonary: Clear to auscultation bilaterally. Abdomen: Soft, nontender, nondistended. Positive bowel sounds. Extremities: Moves all extremities well. No significant clubbing or cyanosis. 1+ lower extremity edema bilaterally. Dermatologic: Reveals no evidence of rash. LABORATORY DATA: White blood cell count 6.98, hemoglobin 14.0, hematocrit 40.0, platelet count a 153,000. Sodium 135, potassium 4.3, chloride 102, bicarb 20, BUN 21, creatinine 1.4. Glucose 142, calcium 8.1, magnesium 9.1, total bilirubin 1.65, total protein 5.5, albumin 2.8, alkaline phosphatase 242, AST 102, ALT 140. ASSESSMENT AND PLAN: 1. Right anterior cervical nodule -- patient's CT scan suggested thickening associated with the sternocleidomastoid muscle. Ultrasound suggested a mass-like lesion. Patient was taken for surgical intervention this afternoon. He tolerated it quite well. Thus far, the working diagnosis is an abscess, as purulent drainage was noted during surgery. We will follow up on culture data. 2. Transaminitis -- this is significant. It appears to have increased over hospitalization, suggesting a possible medication-associated condition. At this point, the most likely source would be Zosyn therapy. We will remain aware that. Linezolid could also be playing a role. For now, we will discontinue Zosyn. We will follow up on abscess culture. 3. One of 2 positive blood cultures -- thus far, this suggests a gram positive cocci. The question is raised whether this is a contaminant or a true pathogen. We will follow this up. 4. Chronic kidney disease -- creatinine is stable at 1.4. We will continue IV fluids, although at a decreased rate. 5. Lower extremity edema -- I suspect this is secondary to volume resuscitation. We will decrease normal saline to KVO. 6. Constipation -- we will continue patient on supportive care. 7. History of coronary artery disease -- we will continue to optimize medical and nonmedical management. 8. Hypertension -- blood pressure is controlled on his current regimen. 9. Hypothyroidism -- we will continue Synthroid replacement. 10. Benign prostatic hypertrophy -- we will need to remain aware in the postoperative period. He is currently being treated with finasteride therapy. We will continue this. 11. Chronic neck and bilateral upper extremity pain -- the question is raised whether this is reactive secondary to acute abscess formation or if this is the primary issue. For now, we will treat patient supportively. I appreciate Orthopedic consultation. 12. Reflux disease -- we will continue patient on Protonix therapy. 13. Disposition -- at this point, patient continues to require nursing home care in a hospital setting. We will plan discharge home once appropriate. cc: Carter Coley MD
[2019-01-13] MEDS: NORCO-10 PO PRN ×2 (00:35→23:51)
[2019-01-13] MEDS: SYNTHROID PO SCH ×2 (05:24→20:59)
[2019-01-13] MEDS: COZAAR PO SCH ×2 (05:24→20:53)
[2019-01-13] MEDS: PERICOLACE PO SCH ×3 (05:24→20:54)
[2019-01-13] MEDS: ZYVOX 600 MG/D5W 600 MG/300 ML IVPB IV SCH (05:52)
[2019-01-13 06:00] LABS: BASO# 0.03 X1000 (0.0-0.2); BASO% 0.4 % (0.0-0.8); EOS# 0.11 X1000 (0.0-0.7); EOS% 1.5 % (0.0-10.0); HEMATOCRIT 42.1 % (42.0-52.0); HEMOGLOBIN 14.7 g/dL (14.0-18.0); IMM GRAN# 0.16 X1000 (0.0-0.04); IMM GRAN% 2.2 % (0.0-0.5); LYMPH# 1.71 X1000 (1.2-3.4); MCHC 34.9 g/dL (33-37); MCV 91.5 FL (81-99); MONO# 0.97 X1000 (0.11-0.59); MONO% 13.1 % (1.7-9.3); MPV 10.6 FL (7.4-10.4); NEUT# 4.44 X1000 (1.4-6.5); NEUT% 59.8 % (42.2-75.2); PLT 189 X1000 (130-400); RDW 12.5 % (11.5-14.5); WBC 7.42 X1000 (4.8-10.8)
[2019-01-13 06:48] LABS: ALBUMIN 3.2 g/dL (3.5-5.0); CALCIUM 8.3 mg/dL (8.8-10.2); CREATININE 1.6 mg/dL (0.7-1.2); MAGNESIUM 2.2 mg/dL (1.5-2.7); TOTAL BILIRUBIN 1.34 mg/dL (0.20-1.00); TOTAL PROTEIN 6.3 g/dL (6.3-8.3)
[2019-01-13] MEDS: METAMUCIL POWDER PACKET PO SCH (08:33)
[2019-01-13] MEDS: PERIDEX MT SCH ×2 (08:33→20:52)
[2019-01-13] MEDS: LEVAQUIN 250 MG/D5W 250 MG/50 ML IVPB IV SCH (08:33)
[2019-01-13 11:44] LABS: URINE SOURCE CLEAN CATCH
[2019-01-13 11:48] LABS: BILIRUBIN URINE NEGATIVE (NEGATIVE); BLOOD URINE NEGATIVE (NEGATIVE); COLOR YELLOW; GLUCOSE URINE NEGATIVE (NEGATIVE); KETONE URINE NEGATIVE (NEGATIVE); LEUKOCYTES URINE NEGATIVE (NEGATIVE); NITRITE URINE NEGATIVE (NEGATIVE); PH URINE 6.5; PROTEIN URINE NEGATIVE (NEGATIVE); SP GRAVITY URINE 1.009; TURBIDITY URINE CLEAR (CLEAR); UROBILINOGEN URINE NORMAL (NORMAL)
[2019-01-13 11:49] LABS: UR EPITHELIAL CELLS <10 /HPF (<10); URINE BACTERIA NEGATIVE /HPF; URINE RBC <10 /HPF (<10); URINE WBC <10 /HPF (<10)
--- NOTE | 2019-01-13 12:40 | GENERAL SURGERY PROGRESS NOTE ---
DATE: 01/13/2019 SUBJECTIVE: Migue is doing generally well. He remains afebrile with stable hemodynamics. White count is 7000, transaminases remain up. They are slightly better. I will keep his drain today. The cultures thus far on the abscess are negative for bacteria. White cells are seen. His 1 blood culture is growing Enterococcus. PLAN: The plan will be to keep his drain until tomorrow. Will remove his drain tomorrow. cc: MD Carter Foley MD
[2019-01-13] MEDS: AMPICILLIN 2 GM/NS 2 GM/100 ML IVPB IV SCH ×3 (12:45→20:52)
--- NOTE | 2019-01-13 14:56 | ECHO REPORT ---
ORDER DATE: 01/13/2019 INDICATION: Endocarditis. FINDINGS: 1. The right atrium appears normal in size at 3.4 cm. 2. Mild tricuspid regurgitation. RV systolic pressure unable to be accurately estimated. 3. Normal RV size and systolic function. 4. Trace pulmonic insufficiency. 5. Normal left atrial size at 3.3 cm. 6. No mitral valve prolapse. Mild mitral regurgitation. No evidence of mitral stenosis. 7. Normal LV size, end-diastolic dimension of 4.8. Normal wall thicknesses with an interventricular septal wall thickness of 1.1. Normal LV systolic function. Estimated EF is 60%. 8. The aortic valve opens well. It is trileaflet. No evidence of stenosis or insufficiency. 9. The aorta is dilated at the root with a dimension of 4.2 cm. 10. No pericardial effusion is identified. 11. No clear evidence of valvular vegetation was identified; however, if clinical suspicion is high, would recommend transesophageal echo. cc: MD Donis Klely MD Scott A. Matthews, MD
--- NOTE | 2019-01-13 15:40 | Diag Imaging Result Doc PS360 ---
EXAM: CT HEAD W/O CONTRAST 01/13/2019 HISTORY: Headache/ bacteremia TECHNIQUE: This exam was performed using automated exposure control, adjustment of mA or kV according to patient size, and/or use of iterative reconstruction technique. COMMENT: There are calcifications in the vertebral and internal carotid arteries bilaterally. There are some patchy areas of lucency in the white matter of both hemispheres consistent with chronic microvascular disease. There is no evidence of bleed or abnormal extra-axial fluid collection. Compared to 05/19/2018 there has been no appreciable change. The visualized paranasal sinuses are clear. The calvarium is intact. IMPRESSION: No evidence of acute intracranial disease. Chronic microvascular ischemic white matter change. Electronically signed by Prakash Hayes 01/13/2019 3:38 PM
--- NOTE | 2019-01-13 16:14 | INFECTIOUS DISEASE CONSULT REP ---
DATE: 01/13/2019 CONCLUSION: The patient has an enterococcal bacteremia and a right neck abscess. I think the patient had urinary tract infection with Enterococcus, and he underwent a cystoscopy which caused the organism to become bacteremic, and the patient's neck was seeded with the enterococcal organism, and it ended up being an abscess. The patient has a pacemaker in place and, because the patient had a bacteremia, it could have infected the pacemaker. RECOMMENDATIONS: I have discontinued Zyvox and Levaquin, and I have started the patient on IV ampicillin. I plan to treat the patient for a total of 6 weeks with IV ampicillin because the enterococcal organism may have seeded the patient's pacemaker. Following the 6 weeks of IV ampicillin, I will put the patient on a low dose of amoxicillin such as 500 mg every 12 hours p.o. on an indefinite basis. I have also ordered an echocardiogram to look for the possibility of endocarditis. The patient does have elevated liver function tests, and we will follow those tests to see by switching the patient to ampicillin they get worse or hopefully become lower. I have also ordered an echocardiogram to check for the possibility of endocarditis. DISCUSSION: The patient tells me that about a week ago he started having right neck pain and pain in his right arm. Two days before the neck pain started, the patient had the onset of dysuria, and a day before the right neck pain started, the patient had a cystoscopy. PRESENT ILLNESS: The patient's CBC shows a white count of 7420, hemoglobin 14.7, and platelet count 189,000. Creatinine is 1.6. GFR is 41. Alkaline phosphatase is 228, ALT is 112. The patient's hepatitis panel is nonreactive. Chest x-ray shows bilateral atelectasis. The blood cultures are growing Enterococcus. Cultures from the patient's abscess thus far are negative. PAST MEDICAL HISTORY/REVIEW OF SYSTEMS: Eyes and ears: He can hear and see okay. Neck: See present illness. The patient had a neck abscess. Respiratory: No cough or shortness of breath. Cardiac: No chest pain or palpitations. GI: No nausea, vomiting or diarrhea. : See present illness. Neurologic: No seizures, no loss of motor or sensory function. Bone, joint, muscle: No swollen joint, no bone pain, no myalgias. PREVIOUS HOSPITALIZATIONS AND OPERATIONS: He has had coronary artery bypass grafting, appendectomy, removal of a thyroid nodule. The patient has had bladder cancer, for which she was treated with chemotherapy and topical therapy. The patient has had a right nephrectomy. He has also had coronary artery stenting. MEDICAL DISEASES: Positive for coronary artery disease, bladder cancer, stroke, hyperlipidemia, hypertension, hypothyroidism, hyperlipidemia, benign prostatic hyperplasia, and renal calculi. INFECTIOUS DISEASE HISTORY: Positive for pneumonia and UTI. FAMILY HISTORY: Positive for diabetes mellitus, myocardial infarction and cancer. [place]IAL HISTORY[place] He does not smoke cigarettes, drink alcoholic beverages or abuse drugs. ALLERGIES: His chart lists the only allergy is morphine. MEDICATIONS TAKEN AT HOME: Plavix, Lexapro, Pepcid, Proscar, Synthroid, Cozaar, Protonix, Metamucil, Crestor, Flomax and Ultram. PHYSICAL EXAMINATION: Vital Signs: Temperature is 97.3 degrees, pulse 67, respirations 20, blood pressure is 157/81. The patient is 6 feet 2 inches tall, weighs 215 pounds. General: This is a somewhat ill-appearing elderly male. He is in no acute distress. Head/eyes/ears/nose/throat: He can hear my spoken words and see near objects. He does have a dressing on his right ear. The patient did not have any white patches in his mouth. Neck: The patient has a large dressing on the right side of his neck. Lungs: Clear to auscultation. Cardiovascular: Regular heart rate. I did not hear a murmur. Abdomen: Soft and nontender. Neurologic: The patient is alert. He can ambulate without difficulty. His sensation is intact to touch. His memory as regarding his medical history was good. Integument: No rash noted. Thank you for the consult. cc: MD Carter Tao MD MTDD
--- NOTE | 2019-01-13 17:26 | PROGRESS NOTE ---
DATE: 01/13/2019 SUBJECTIVE: Upon my arrival this morning, patient states he was doing reasonably well. He continued to have posterior scalp pain. His incision site was clean without significant pain. The patient said that through the day, patient states he did reasonably well. Interestingly, blood culture returned positive for enterococcus. Dr. Livingston was consulted. Upon further investigation, patient had a urologic procedure done last week preceding his current symptoms. Urinalysis, however, at present time is negative. He denies current fevers, chills, nausea, vomiting, shortness of breath, or chest discomfort. He does note having significant weakness. OBJECTIVE: Vitals: T-max 98.2 degrees, heart rate 62 to 67, respirations 18 to 20, blood pressure 146 to 159 over 70 to 85. General: Well nourished, well developed, no acute distress. Cardiovascular: Regular rate and rhythm. No significant murmurs, rubs, or gallops. Pulmonary: Clear to auscultation bilaterally. Abdomen: Soft, nontender, nondistended. Positive bowel sounds. Extremities: Moves all extremities well. No significant clubbing, cyanosis, or edema. Dermatologic: Evaluation reveals a dressed wound to the right neck. LABORATORY DATA: White blood cell count 7.42, hemoglobin 14.7, hematocrit 42.1, platelet count 189,000. Sodium 137, potassium 4.0, chloride 102, bicarb 23, BUN 18, creatinine 1.6, glucose 108, calcium 8.3. Total bilirubin 1.34, total protein 6.3, albumin 3.2, alkaline phosphatase 228, AST 56, ALT 112. ASSESSMENT AND PLAN: 1. Right anterior cervical abscess-patient is postoperative day #1 incision and drainage with irrigation. The patient tolerated this quite well. Cultures, thus far, are pending. Blood cultures, however, are positive with enterococcus as described below. Dr. Livingston was consulted. Antibiotics have been adjusted. Overall, patient is achieving satisfactory postsurgical recovery. 2. Bacteremia-patient's blood cultures are positive for Enterococcus. This likely was a consequence of his recent urologic intervention. The patient has been transitioned from linezolid and levofloxacin therapy to ampicillin therapy. I appreciate Dr. Livignston' consultation. 3. Transaminitis-this appears to have begun after Zosyn was initiated. Zosyn has been discontinued. Transaminases improved from yesterday. We will need to monitor this with initiating ampicillin therapy. We will follow this. 4. Chronic kidney disease-the patient's creatinine is stable at present time. We will encourage p.o. intake. We will discontinue IV fluids for now. 5. Lower extremity edema-this likely is secondary to volume resuscitation. Once again, we will discontinue IV fluids. 6. Constipation-we will continue patient on supportive care. Symptoms are controlled. 7. History of coronary artery disease-we will continue to optimize medical and nonmedical management. 8. Hypertension-blood pressure today is elevated. We will continue his current regimen for now. We will determine if further medication titration is necessary while hospitalized. 9. Hypothyroidism-we will continue patient on Synthroid replacement. 10. Benign prostatic hypertrophy-patient is currently being treated with finasteride therapy. Urinary output is adequate. 11. Chronic neck, bilateral upper extremity, and posterior scalp pain-I suspect this is secondary to his acute illness. We will check a CT scan of the head to rule out intracranial abscess. We will continue treatment for bacteremia and supportive care. I appreciate orthopedic consultation. 12. Reflux disease-we will continue patient on Protonix therapy. 13. Disposition-at this point, patient continues to require penitentiary care in a hospital setting. We will plan discharge home once appropriate. cc: Carter Coley MD
[2019-01-13] MEDS: PROTONIX PO SCH (20:53)
[2019-01-13] MEDS: ASPIRIN EC PO SCH (20:53)
[2019-01-13] MEDS: PROSCAR PO SCH (20:55)
[2019-01-13] MEDS: LEXAPRO PO SCH (20:59)
[2019-01-14] MEDS: AMPICILLIN 2 GM/NS 2 GM/100 ML IVPB IV SCH ×4 (03:51→20:55)
[2019-01-14 06:37] LABS: BASO# 0.04 X1000 (0.0-0.2); BASO% 0.5 % (0.0-0.8); EOS# 0.16 X1000 (0.0-0.7); EOS% 1.9 % (0.0-10.0); HEMATOCRIT 44.1 % (42.0-52.0); HEMOGLOBIN 14.9 g/dL (14.0-18.0); IMM GRAN# 0.23 X1000 (0.0-0.04); IMM GRAN% 2.7 % (0.0-0.5); LYMPH# 2.21 X1000 (1.2-3.4); LYMPH% 25.8 % (20.5-51.1); MCH 31.6 PG (27-31); MCHC 33.8 g/dL (33-37); MCV 93.4 FL (81-99); MONO# 1.09 X1000 (0.11-0.59); MONO% 12.7 % (1.7-9.3); NEUT# 4.85 X1000 (1.4-6.5); NEUT% 56.4 % (42.2-75.2); PLT 234 X1000 (130-400); RBC 4.72 XMIL (4.7-6.1); RDW 12.9 % (11.5-14.5); WBC 8.58 X1000 (4.8-10.8)
[2019-01-14 07:02] LABS: ALBUMIN 3.2 g/dL (3.5-5.0); CALCIUM 8.1 mg/dL (8.8-10.2); CREATININE 1.7 mg/dL (0.7-1.2); MAGNESIUM 2.2 mg/dL (1.5-2.7); POTASSIUM 4.4 mmol/L (3.5-5.1); TOTAL BILIRUBIN 1.09 mg/dL (0.20-1.00); TOTAL PROTEIN 6.4 g/dL (6.3-8.3)
[2019-01-14] MEDS: METAMUCIL POWDER PACKET PO SCH (09:54)
[2019-01-14] MEDS: PERICOLACE PO SCH ×3 (09:54→20:45)
[2019-01-14] MEDS: LOVENOX SUBQ SCH (09:55)
[2019-01-14] MEDS: PLAVIX PO SCH (09:55)
[2019-01-14] MEDS: PERIDEX MT SCH ×2 (09:55→20:45)
[2019-01-14] MEDS: PROSCAR PO SCH (20:45)
[2019-01-14] MEDS: COZAAR PO SCH (20:46)
[2019-01-14] MEDS: LEXAPRO PO SCH (20:46)
[2019-01-14] MEDS: ASPIRIN EC PO SCH (20:46)
[2019-01-14] MEDS: PROTONIX PO SCH (20:46)
[2019-01-14] MEDS: NORCO-10 PO PRN (20:46)
--- NOTE | 2019-01-14 22:19 | INFECTIOUS DISEASE PROGRESS NO ---
DATE: 01/14/2019 PRESENT ILLNESS: The patient has an enterococcal bacteremia, which I believe is from a urinary tract infection. He also is status post drainage of a right neck abscess, that I think could be due to the bacteremic organism, namely enterococcus. The patient has a pacemaker in place, and it could have become infected hematogenously. MEDICATIONS: The patient is on IV ampicillin. OBJECTIVE: Vital signs: Temperature is 97.5 degrees, pulse 62, respirations 20, blood pressure 148/72. Generally, this is a somewhat ill-appearing elderly male. He is in no acute distress. Head, eyes, ears, nose, throat: He can hear my spoken words and see near objects. He does have a dressing on his right ear. He does not have any white patches on his tongue. Neck: The patient has a dressing on the right side of the neck. The incision is intact and there is no bleeding. Lungs clear to auscultation.Cardiovascular: Heart rate is regular. Abdomen is soft and not tender. Neurologic: The patient is alert. He can ambulate without difficulty. There is no tremor. Integument: No rash noted. LAB AND X-RAY: CBC shows a white count of 8550, hemoglobin 14.9, and platelet count 234,000. Creatinine is 1.7. GFR is 39. Hepatitis panel is negative. Liver function studies are slightly elevated but stable. Repeat blood cultures are pending. Culture from the abscess is growing gram- positive cocci. An echocardiogram showed no vegetations. ASSESSMENT AND PLAN: 1. The patient has an enterococcal urinary tract infection, which may have caused a right neck abscess and it may have infected the patient's pacemaker. My plan is to treat with intravenous ampicillin for a total of 6 weeks, with day 1 being the first day that the repeat blood cultures are negative, and then follow that with oral penicillin or amoxicillin every 12 hours indefinitely. These antibiotic measures are necessary to try to prevent the pacemaker from getting infected. 2. Comorbidities: The patient is elderly and he does have bladder cancer, and did undergo a cystoscopy a few days before he got sick. The patient also has benign prostatic hyperplasia and he also has renal calculi. cc: MD Carter Tao MD
--- NOTE | 2019-01-14 23:00 | GENERAL SURGERY PROGRESS NOTE ---
DATE: 01/14/2019 Ray is afebrile with stable hemodynamics. His drain quantity is down to 9 mL. His culture apparently is growing gram-positive coccus. His wound is satisfactory. The plan is to go ahead and remove his drain since it has been in for 24 hours now and is not draining much. He is well covered from antibiotics. [facility] will cover in my absence. cc: MD Carter Foley MD
[2019-01-15] MEDS: SYNTHROID PO SCH ×2 (00:36→06:21)
[2019-01-15] MEDS: AMPICILLIN 2 GM/NS 2 GM/100 ML IVPB IV SCH (03:36)
--- NOTE | 2019-01-15 06:08 | PROGRESS NOTE ---
DATE: 01/14/2019 SUBJECTIVE: Upon my arrival this morning, patient stated he was doing reasonably well. He rested overnight. He denied fevers, chills, nausea, vomiting, shortness of breath, or chest discomfort. Throughout the day, patient states initially he did well. This evening, upon my arrival, patient was noted to have pain in his posterior scalp. He noted considerable fatigue and difficulty with getting comfortable. He is quite anxious about needing to sleep tonight. He denies fevers, chills tonight. Thus far patient has tolerated IV antibiotics well. OBJECTIVE: T-max 98 degrees, heart rate 62 to 74, respirations 16 to 20, blood pressure 131 to 169/77 to 88.General: No acute distress. Cardiovascular: Regular rate and rhythm. No significant murmurs, rubs, gallops. Pulmonary: Clear to auscultation bilaterally. Abdomen: Soft, nontender, nondistended. Positive bowel sounds. Extremities: Moves all extremities well. No significant clubbing or cyanosis. One to 2+ lower extremity edema bilaterally. Dermatologic: Evaluation reveals a nodular density in the right neck associated with a surgical wound. LABORATORY DATA: White blood cell count 8.58, hemoglobin 14.9, hematocrit 44.1, platelet count 234,000. Sodium 138, potassium 4.4, chloride 102, bicarb 25, BUN 17, creatinine 1.7, glucose 112, calcium 8.1. Magnesium 2.2. Total bilirubin 1.09, total protein 6.4, albumin 3.2, alkaline phosphatase 22, AST 57, ALT 106. ASSESSMENT AND PLAN: 1. Right anterior cervical abscess-patient is postoperative day #2. The patient does have some fullness in this side after the dressing has been removed. This could represent a recurrent or simply postsurgical changes. We will follow for now. We will treat bacteremia as below. Thus far, wound culture suggests a gram-positive cocci. 2. Bacteremia-the patient's blood cultures returned positive for Enterococcus. This likely was a consequence of recent urologic instrumentation. The patient is currently being treated with ampicillin per Dr. Livingston' consultation. We will follow up culture of the wound. 3. Transaminitis-transaminases are stable. It appeared that the transaminitis occurred after Zosyn was initiated. The question is raised whether patient will tolerate ampicillin. We will continue to follow this. 4. Chronic kidney disease-patient's creatinine is stable at present time. 5. Lower extremity edema-this likely is secondary to volume resuscitation. IV fluids were discontinued. At this point, I feel the risk of diuresis outweighs the benefits. We will follow this. 6. Constipation-we will continue supportive care. 7. History of coronary artery disease-we will continue to optimize the patient's medical and nonmedical management. 8. Hypertension-patient's blood pressure has been labile, but slightly elevated. We will continue to follow this while hospitalized. We will determine if further titration of medication is warranted. 9. Hypothyroidism-we will continue patient on replacement. 10. Benign prostatic hypertrophy-we will continue patient on finasteride therapy. 11. Chronic neck, bilateral upper extremities, and posterior scalp pain-patient has achieved improvement with treatment of his bacteremia. We will continue supportive care for now. 12. Reflux disease-we will continue patient on Protonix therapy. 13. Disposition-at this point, patient continues to require correction care in a hospital setting. We will plan discharge home once appropriate. cc: Carter Coley MD
[2019-01-15 07:01] LABS: BASO# 0.04 X1000 (0.0-0.2); BASO% 0.5 % (0.0-0.8); EOS# 0.14 X1000 (0.0-0.7); EOS% 1.9 % (0.0-10.0); HEMATOCRIT 42.1 % (42.0-52.0); HEMOGLOBIN 14.2 g/dL (14.0-18.0); IMM GRAN# 0.23 X1000 (0.0-0.04); IMM GRAN% 3.1 % (0.0-0.5); LYMPH# 1.46 X1000 (1.2-3.4); LYMPH% 19.4 % (20.5-51.1); MCH 31.4 PG (27-31); MCHC 33.7 g/dL (33-37); MCV 93.1 FL (81-99); MONO# 0.95 X1000 (0.11-0.59); MONO% 12.6 % (1.7-9.3); NEUT# 4.71 X1000 (1.4-6.5); NEUT% 62.5 % (42.2-75.2); PLT 219 X1000 (130-400); RBC 4.52 XMIL (4.7-6.1); RDW 12.6 % (11.5-14.5); WBC 7.53 X1000 (4.8-10.8)
[2019-01-15 07:16] LABS: ALB/GLOB RATIO 1.1; ALBUMIN 3.2 g/dL (3.5-5.0); CALCIUM 8.3 mg/dL (8.8-10.2); CREATININE 1.5 mg/dL (0.7-1.2); DIRECT BILIRUBIN 0.3 mg/dL (0.00-0.20); MAGNESIUM 2.1 mg/dL (1.5-2.7); POTASSIUM 4.2 mmol/L (3.5-5.1); TOTAL BILIRUBIN 1.06 mg/dL (0.20-1.00); TOTAL PROTEIN 6.1 g/dL (6.3-8.3)
[2019-01-15 09:06] LABS: INR 1.08; PROTIME 14.2 Seconds (11.0-16.0)
[2019-01-15] MEDS: METAMUCIL POWDER PACKET PO SCH (09:22)
[2019-01-15] MEDS: LOVENOX SUBQ SCH (09:23)
[2019-01-15] MEDS: PERICOLACE PO SCH (09:23)
[2019-01-15] MEDS: PERIDEX MT SCH (09:23)
[2019-01-15] MEDS: PLAVIX PO SCH (09:23)
[2019-01-15] MEDS ORDERED: NS 250 ML ONE (09:47)
[2019-01-15] MEDS: PENICILLIN POTASSIUM IV SCH ×2 (11:12→17:12)
[2019-01-15] MEDS: NS IV SCH ×2 (11:12→17:12)
--- NOTE | 2019-01-15 15:23 | PROGRESS NOTE ---
DATE: 01/15/2019 Mr. Migue Arriola is a patient of Dr. Carter Coley and Kye Mcbride. Evidently he had enterococcus in his blood from urinary tract infection. He also had swelling involving the base of his right neck and he underwent incision and drainage per Dr. Mcbride. His ALIS drain was removed yesterday. He still has some swelling in the area but less pain and he can move his neck easier. His white blood cell counts been normal. He has been afebrile. His blood cultures are now negative. He has a right-sided PICC line in place and he is going to need long-term IV antibiotics at home. I will follow Dr. Carter Coley' lead about when to discharge the patient. I am front counter attendant this weekend. We will see him on a daily basis to evaluate his wound while he is hospitalized. He does have a pacemaker in place. His heart rate is 84, blood pressure 137/88, O2 saturation 96%. He is afebrile. His white blood cell count is 7.5, hematocrit is 42%. BUN and creatinine are 19 and 1.5. cc: MD Carter Castillo MD
[2019-01-15 16:05] VITALS: BP 166/79
[2019-01-15] MEDS: NORCO-10 PO PRN (16:12)
--- NOTE | 2019-01-15 18:24 | INFECTIOUS DISEASE PROGRESS NO ---
DATE: 01/15/2019 PRESENT ILLNESS: Mr. Arriola has an enterococcal bacteremia which we think may have started from a urinary tract infection. There is also a right neck abscess which is now showing the same Enterococcus. MEDICATIONS: The patient has been on ampicillin 2 g IV every 6 hours. Based on his sterile blood cultures today is day 2 of a 6 week treatment for his bacteremia. PHYSICAL EXAMINATION: Vital Signs: Temperature is 97.7 degrees, pulse rate 84, respiratory rate 20, blood pressure 137/88. O2 saturation is 96% on room air. General: This is a chronically ill- appearing, elderly gentleman. He is sitting up in a chair currently in no acute distress. HEENT: Atraumatic, normocephalic. Oral mucous membranes are pink and moist. Conjunctivae are pink. Neck: Has a slight decrease in suppleness. There is a surgical incision and mass to the right side of the neck as well as a dressing site to the right chest where the previous drain had been. That dressing is dry and intact. Respiratory: Lung sounds are clear to auscultation bilaterally. No work of breathing is noted. Cardiovascular: Heart rate is regular. Abdomen: Soft. Round. Nondistended, nontender. Bowel sounds are active. Neurologic: He is awake, alert, and oriented. Able to ambulate independently. LABORATORY AND X-RAY: Today, his white count is 7.53. Hemoglobin 14.2, platelet count 219,000. Creatinine is 1.5, GFR 45. Total bilirubin is 1.06. Direct bilirubin 0.30, AST 44, ALT 86. Alkaline phosphatase 193. His blood and neck cultures. Both grew Enterococcal faecalis. The most recent blood cultures are sterile after 48 hours. No imaging reports today. ASSESSMENT AND PLAN: Mr. Arriola is being treated for an enterococcal right neck abscess and bacteremia. Because there is a pacemaker in place which may have been hematogenously infected, he will need 6 weeks of treatment. Today is day 2 of a 42 day regimen which he will need. He has been receiving ampicillin, but because ampicillin is less stable than penicillin we will switch him to penicillin G 3 million units IV every 6 hours and then at home he will be able to take 12 million units every 24 hours as a continuous dose which will only need to be changed out once a day. Since he has had a transaminitis, we will have his liver enzymes checked with his routine blood work, once a week. Orders have been put in for a PICC line to be inserted today. I have talked to the patient at length about these procedures and protocols and his questions have been answered. Side effects to report, including diarrhea, rashes, or mouth pain/sores, have also been discussed, and the patient has stated understanding and agreed with the plan. Dr. Livingston has spoken with Dr. Coley, and the plan is to possibly send him home today, if okay with surgery. We will see him back in our office in 3 weeks and then again at 6 weeks at which time we will take out his PICC line and discuss prophylactic measures with oral penicillin or amoxicillin low dose. These plans have been discussed with and recommended by Dr. Livingston. COMORBIDITIES: For Mr. Arriola include that he is elderly with CKD stage 3, coronary artery disease and cholelithiasis with elevated liver enzymes. Dictated by ANNA Diaz for Donis Livingston MD cc: MD Carter Tao MD MTDD
--- NOTE | 2019-01-16 19:32 | DISCHARGE SUMMARY ---
ADMISSION DATE: 01/09/2019 DISCHARGE DATE: 01/15/2019 ADMISSION DIAGNOSIS: Right neck pain. DISCHARGE DIAGNOSES: 1. Right anterior cervical abscess. 2. Bacteremia with Enterococcus. 3. Transaminitis, improving. 4. Chronic kidney disease, present on arrival. 5. Lower extremity edema. 6. Constipation, present on arrival. 7. History of coronary artery disease, present on arrival. 8. Hypertension, present on arrival. 9. Hypothyroidism, present on arrival. 10. Benign prostatic hypertrophy, present on arrival. 11. Reflux disease, present on arrival. 12. Chronic cervical spine, bilateral upper extremity, and posterior scalp pain. CONSULTATIONS: 1. Dr. Livingston with Infectious Diseases was consulted for further evaluation and management of bacteremia. 2. Dr. Mcbride with General Surgery was consulted for further evaluation and management of possible anterior cervical abscess. PROCEDURES: 1. A lower extremity venous Doppler was performed on 01/09/2019 which revealed no evidence of DVT. 2. A V/Q scan was performed on 01/09/2019, which revealed negative V/Q scan. 3. A carotid Doppler was performed on 01/09/2019 which revealed bilateral atherosclerotic disease at the distal common carotid arteries and carotid bulbs with stenosis between 40% and 59% based on hemodynamics on the left. Echogenic mass in the soft-tissue superficial to the carotid arteries on the right. 4. CT of the neck revealed thickening and heterogeneity involving the lower sternocleidomastoid muscle with surrounding soft tissue inflammatory changes on the right. 5. Ultrasound of the neck revealed on 01/10/2019 revealed a complex heterogenous mass in the soft tissue of the neck on the right, corresponding to the palpable abnormality. This probably represents a soft tissue hematoma, but in the right clinical scenario, an abscess is possible. 6. Incision and drainage of the abscess to the right sternocleidomastoid muscle was performed on 01/12/2019. 7. CT scan of the head was performed on 01/13/2019 which revealed no evidence of acute intracranial disease. Chronic microvascular ischemic white matter change. HISTORY AND PHYSICAL EXAMINATION: See admit note. PHYSICAL EXAMINATION PRIOR TO DISCHARGE: Vital Signs: Temperature 98.8 degrees, heart rate 73, respirations 20, blood pressure 166/79. General: No acute distress. Cardiovascular: Regular rate and rhythm. No significant murmurs, rubs, or gallops. Pulmonary: Clear to auscultation bilaterally. Abdomen: Soft, nontender, nondistended. Positive bowel sounds. Extremities: Moves all extremities well. No significant clubbing or cyanosis. There is 2+ lower extremity edema bilaterally. Neurologic: Cranial nerves II-XII grossly intact. Motor and sensory grossly intact. Psychologic: Examination is appropriate. Dermatologic: Evaluation reveals an incision to the right anterior cervical spine with associated nodular density. LABORATORY DATA PRIOR TO DISCHARGE: White blood cell count 7.53, hemoglobin 14.2, hematocrit 42.1, platelet count 219,000. PT 12.4, INR is 1.08. Sodium 139, potassium 4.2, chloride 102, bicarb 26, BUN 19, creatinine 1.5, glucose 119, calcium 8.3, magnesium 2.1. Total bilirubin 1.06, total protein 6.1, albumin 3.2. Alkaline phosphatase 193, AST 44, ALT 86. HOSPITAL COURSE: Patient was admitted as per history and physical examination. Hospital course per condition is as follows. 1. Right anterior cervical abscess - cultures grew Enterococcus. This was an identical organism to his bacteremia. I suspect this was a function of seeding secondary to underlying bacteremia associated with a urologic procedure. The patient is postoperative day #3, incision and drainage. He does continue to have some fullness in the right neck, although he has had no fevers, chills, nausea, or vomiting. The patient will be discharged home with antibiotics per Dr. Livingston. We will follow this. 2. Bacteremia - as above, patient's blood cultures returned positive for Enterococcus. The patient was treated aggressively while inpatient. Dr. Livingston was consulted. The patient has been transitioned to penicillin therapy as an outpatient. He will be treated for 6 weeks with penicillin therapy. Thereafter, he will likely require daily antibiotics for suppression in the setting of pacemaker implantation. We will continue to follow patient closely as an outpatient. I appreciate Dr. Livingston' consultation. 3. Transaminitis - after Zosyn was initiated, patient developed a considerable transaminitis. With discontinuing Zosyn, transaminases have trended downward. The patient's last laboratory data today suggested transaminases approaching normal. We will need to follow this closely with penicillin therapy. We will follow this. 4. Chronic kidney disease - patient has longstanding disease. Creatinine remained reasonably stable while hospitalized. We will remain aware. 5. Lower extremity edema - the patient has developed considerable lower extremity edema associated with volume resuscitation. Lower extremity Doppler upon admission revealed no evidence of DVT. The patient will be discharged home and encouraged to elevate his lower extremities. We will consider adding a diuretic in the future if necessary. 6. Constipation - the patient was maintained on Metamucil therapy while hospitalized. Symptoms are controlled. 7. History of coronary artery disease - patient has longstanding disease. He was treated with optimum medical management while hospitalized. 8. Hypertension - patient's blood pressure was labile, but slightly elevated while hospitalized. We will continue to follow this as an outpatient and determine if further titration of medication is appropriate. 9. Hypothyroidism - patient was maintained on replacement while hospitalized. 10. Benign prostatic hypertrophy - symptoms remained adequately controlled with finasteride therapy. 11. Chronic neck, bilateral upper extremity, and posterior scalp pain - this is, at times, limiting. We will continue supportive care. We will encourage activity. 12. Reflux disease - patient was maintained on Protonix therapy while hospitalized. DISCHARGE CONDITION: Good. DISPOSITION: Discharge to home. MEDICATIONS: 1. Olmitz 10, 1 tablet every 4 hours as needed for pain. 2. Cozaar 50 mg twice daily. 3. Synthroid 100 mg at bedtime. 4. Metamucil daily. 5. Plavix 75 mg daily. 6. Aspirin 81 mg daily. 7. Nitroglycerin 0.4 mg sublingual as needed. 8. Lexapro 10 mg at bedtime. 9. Proscar 5 mg at bedtime. 10. Pantoprazole 40 mg daily. 11. IV penicillin for [address] Livingston. FOLLOWUP: Patient to follow up with me in approximately 1 to 2 weeks. Patient is to follow up with Dr. Livingston as arranged. Patient is to follow up with Dr. Mcbride as arranged. cc: Carter Coley MD
== END 2019-01-15 20:21 | disposition home health service (06) | DRG 857 ==
LOC: P.ED 19:20 → P.MEDSURG 01-09 01:06 → SUPCPDRO 01-09 01:06 → SUATTDRO 01-09 01:06 → 4N 01-10 19:22
PROVIDERS: ADMIT Internal Medicine; ATTEND Internal Medicine